=== PATIENT | female | born 1940 | race African-American/Black ===

== ENCOUNTER 2017-09-20 11:35 | Inpatient (IN) | payer MEDICARE, MEDICAID ==
[~2017-09-20] VITALS: Ht 162.6 cm; Wt 56.4 kg
[2017-09-20] MEDS ORDERED: APIX5TAB PO (11:50)
[2017-09-20] MEDS ORDERED: DONE5TAB33 PO (11:50)
[2017-09-20] MEDS ORDERED: ATOR10TA69 PO (11:50)
[2017-09-20] MEDS ORDERED: POTA10TA15 PO (11:50)
[2017-09-20] MEDS ORDERED: ATEN-42 PO (11:50)
[2017-09-20] MEDS ORDERED: PSEU-207 PO (11:50)
[2017-09-20] MEDS ORDERED: METF-815 PO (11:50)
[2017-09-20] MEDS ORDERED: CLON1TAB12 PO (11:50)
[2017-09-20] MEDS ORDERED: SODIUM CHLORIDE 0.9% 1,000 ML IV ONE (11:57)
[2017-09-20 12:18] LABS: BASOPHILS % 0.6 % (0.0-2.0); EOSINOPHILS % 0.9 % (0.0-5.0); HEMOGLOBIN. 11.9 g/dL (12.0-16.0); LYMPHOCYTES % 30.9 % (20.0-50.0); MEAN CORPUSCULAR HEMOGLOBIN 29.5 pg (28.0-32.0); MEAN CORPUSCULAR VOLUME 89.3 fL (81.0-99.0); MEAN PLATELET VOLUME 8.1 fl (7.4-10.4); MONOCYTES % 6.2 % (2.0-8.0); NEUTROPHILS % 61.4 % (40.0-76.0); PLATELET 278 x1000/uL (130-400); RED BLOOD CELL COUNT 4.02 mill/uL (4.2-5.4); RED CELL DISTRIBUTION WIDTH 13.6 % (11.6-14.6)
[2017-09-20 12:26] LABS: INR 1.1; PARTIAL THROMBOPLASTIN TIME 22.6 sec (23.4-31.0)
[2017-09-20 12:35] LABS: CHLORIDE 104 mEq/L (98-107); CREATINE KINASE MB FRACTION 1.1 ng/mL (0.5-3.6)
[2017-09-20] MEDS ORDERED: ASPIRIN 325MG EC TABLET PO ONE (13:30)
[2017-09-20 16:00] VITALS: BP 165/59
[2017-09-20 16:25] LABS: *AMPHETAMINES SCREEN URINE NEGATIVE (NEGATIVE); *BARBITURATES SCREEN URINE NEGATIVE (NEGATIVE); *BENZODIAZEPINES SCREEN URINE NEGATIVE (NEGATIVE); *COCAINE SCREEN URINE NEGATIVE (NEGATIVE); CANNABINOID URINE SCREEN NEGATIVE (NEGATIVE); METHADONE URINE SCREEN NEGATIVE (NEGATIVE); OPIATES URINE SCREEN NEGATIVE (NEGATIVE); PHENCYCLIDINE URINE SCREEN NEGATIVE (NEGATIVE)
[2017-09-20] MEDS: INSULIN LISPRO 100 UNITS/ML SUBCUT SCH ×2 (17:50→21:43)
[2017-09-20] MEDS ORDERED: ACETAMINOPHEN 325MG TABLET PO PRN (18:00)
[2017-09-20] MEDS ORDERED: MAGNESIUM/ALUMINUM HYDROXIDE/SIMETHICONE 30ML UDC PO PRN (18:00)
[2017-09-20] MEDS ORDERED: DEXTROSE 50% WATER 50ML SYRINGE IV PRN (18:00)
[2017-09-20] MEDS ORDERED: ONDANSETRON HCL 4MG/2ML INJ IV PRN (18:00)
[2017-09-20] MEDS ORDERED: DIPHENHYDRAMINE 50MG/ML VIAL IV PRN (18:00)
[2017-09-20] MEDS ORDERED: CLONIDINE 0.1MG TABLET PO PRN (18:00)
[2017-09-20] MEDS ORDERED: GUAIFENESIN 200MG/10ML SUGAR FREE UDC PO PRN (18:00)
[2017-09-20 18:26] VITALS: BP 165/59
[2017-09-20 20:21] VITALS: BP 157/65
[2017-09-20 20:22] VITALS: BP_SYST 163; BP_SYST 174; BP_DIAS 62; BP_DIAS 67
[2017-09-20] MEDS: BLOOD SUGAR DIAGNOSTIC STRIP TEST SCH (21:27)
[2017-09-20] MEDS: INSULIN GLARGINE UD 100 UNITS/ML SYR SUBCUT SCH (21:43)
[2017-09-20] MEDS: SODIUM CHLORIDE 0.9% INJ 3ML FLUSH IVF SCH (21:47)
[2017-09-21] VITALS (9 sets, daily range): BP systolic 108–179; BP diastolic 20–95
[2017-09-21] MEDS: SODIUM CHLORIDE 0.9% INJ 3ML FLUSH IVF SCH ×3 (06:25→21:26)
[2017-09-21] MEDS: BLOOD SUGAR DIAGNOSTIC STRIP TEST SCH ×4 (06:29→21:58)
[2017-09-21] MEDS: INSULIN LISPRO 100 UNITS/ML SUBCUT SCH ×4 (07:50→22:09)
[2017-09-21] MEDS: AMLODIPINE 5MG TABLET PO SCH (08:29)
[2017-09-21] MEDS: APIXABAN 2.5 MG TABLET PO SCH ×2 (08:29→17:51)
[2017-09-21] MEDS: DONEPEZIL HCL 5MG TABLET PO SCH (08:29)
[2017-09-21] MEDS: LOSARTAN POTASSIUM 25 MG TABLET PO SCH (08:29)
[2017-09-21] MEDS ORDERED: APIXABAN 5 MG TABLET PO SCH (09:00)
[2017-09-21] MEDS ORDERED: FURO80TA3 PO (10:58)
[2017-09-21] MEDS ORDERED: VALS80TA2 PO (10:58)
[2017-09-21] MEDS ORDERED: INSU100I28 SQ (10:58)
[2017-09-21] MEDS ORDERED: DONE10TA43 PO (11:08)
[2017-09-21] MEDS ORDERED: METF-414 PO (11:08)
[2017-09-21] MEDS ORDERED: POTA20TA82 PO (11:08)
[2017-09-21] MEDS ORDERED: ATORVASTATIN CALCIUM 10MG TABLET PO SCH (21:00)
[2017-09-21] MEDS: INSULIN GLARGINE UD 100 UNITS/ML SYR SUBCUT SCH (22:09)
[2017-09-22 04:00] VITALS: BP 176/55
[2017-09-22] MEDS: SODIUM CHLORIDE 0.9% INJ 3ML FLUSH IVF SCH ×2 (05:35→13:14)
[2017-09-22] MEDS: BLOOD SUGAR DIAGNOSTIC STRIP TEST SCH ×2 (06:30→11:42)
[2017-09-22 07:14] LABS: BASOPHILS % 0.4 % (0.0-2.0); HEMATOCRIT. 31.5 % (36.0-48.0); HEMOGLOBIN. 10.3 g/dL (12.0-16.0); LYMPHOCYTES % 33.3 % (20.0-50.0); MEAN CORPUSCULAR HEMOGLOBIN 29.3 pg (28.0-32.0); MEAN CORPUSCULAR VOLUME 89.6 fL (81.0-99.0); MEAN PLATELET VOLUME 8.6 fl (7.4-10.4); MONOCYTES % 6.6 % (2.0-8.0); NEUTROPHILS % 57.7 % (40.0-76.0); PLATELET 197 x1000/uL (130-400); RED BLOOD CELL COUNT 3.52 mill/uL (4.2-5.4); RED CELL DISTRIBUTION WIDTH 13.6 % (11.6-14.6)
[2017-09-22 08:00] VITALS: BP 127/65
[2017-09-22 08:06] LABS: CHLORIDE 106 mEq/L (98-107); CREATINE KINASE 102 IU/L (26-192); CREATINE KINASE MB FRACTION 0.5 ng/mL (0.5-3.6); HDL CHOLESTEROL 41 mg/dL (40-59); LDL CHOLESTEROL 64 mg/dL (5-100)
[2017-09-22] MEDS: APIXABAN 2.5 MG TABLET PO SCH (09:01)
[2017-09-22] MEDS: DONEPEZIL HCL 5MG TABLET PO SCH (09:01)
[2017-09-22] MEDS: LOSARTAN POTASSIUM 25 MG TABLET PO SCH (09:01)
[2017-09-22] MEDS: AMLODIPINE 5MG TABLET PO SCH (09:01)
[2017-09-22] MEDS: INSULIN LISPRO 100 UNITS/ML SUBCUT SCH ×2 (09:05→13:16)
[2017-09-22 15:06] VITALS: BP 129/93
== END 2017-09-22 15:20 | disposition home or self-care (01) | DRG 292 ==
LOC: ER 12:46 → 6WST 13:30 → ENRESERV 15:57
PROVIDERS: ADMIT Internal Medicine; ATTEND Internal Medicine
DX: I13.0 Hypertensive heart and chronic kidney disease with heart failure and stage 1 through stage 4 chronic kidney disease, or unspecified chronic kidney disease (principal); N17.9 Acute kidney failure, unspecified; E86.0 Dehydration; E11.22 Type 2 diabetes mellitus with diabetic chronic kidney disease; G90.8 Other disorders of autonomic nervous system; F03.90 Unspecified dementia, unspecified severity, without behavioral disturbance, psychotic disturbance, mood disturbance, and anxiety; E78.00 Pure hypercholesterolemia, unspecified; Z95.0 Presence of cardiac pacemaker; Z79.899 Other long term (current) drug therapy; Z79.84 Long term (current) use of oral hypoglycemic drugs; N18.2 Chronic kidney disease, stage 2 (mild)
CPT/HCPCS: 36415; 71045; 80048; 80061; 80305; 81025; 82550; 82553; 82962; 83735; 83880; 84443; 84484; 85379; 93005; 93306; 93880; 93970; 99285; G0482; J1815; J7030